=== PATIENT | male | born 1980 | race Caucasian/White ===

== ENCOUNTER 2022-10-23 08:41 | Outpatient (CLI) | payer MEDICARE, SELFPAY ==
--- NOTE | ~2022-10-23 | DEXA_ITS ---
Bone Density Report Name: AMINTA TITUS Age: 42 Sex: Male Ethnicity: White Date of : 1980 Indication: asthma or emphysema; Referring Provider: NIURKA RUIZ Study: Bone densitometry was performed. Exam Date: October 23, 2022 Accession number: [id number] Bone Density: Region BMD T-score Z-score Classification AP Spine(L1-L4) 0.774 -2.9 -2.7 Osteoporosis Femoral Neck (Left) 0.626 -2.2 -1.6 Osteopenia Total Hip (Left) 0.840 -1.3 -1.0 Osteopenia Femoral Neck (Right) 0.594 -2.5 -1.9 Osteoporosis Total Hip (Right) 0.749 -1.9 -1.6 Osteopenia Total Hip Mean 0.795 -1.6 -1.3 Osteopenia World Health Organization criteria for BMD impression classify patients as: Normal (T-score at or above -1.0), Osteopenia (T-score between -1.0 and -2.5), or Osteoporosis (T-score at or below -2.5). 10-year Fracture Risk: FRAX not reported because: Man under age 50 Some T-score for Spine Total or Hip Total or Femoral Neck at or below -2.5 Clinical Information Provided by Patient: Has used the following medications: Vitamin D, Calcium Has the following medical conditions: Asthma or Emphysema Patient maximum height was 64 No regular weight bearing exercise Drinks caffeinated beverages Impression: The patient's bone mass is below expected range for age, gender and ethnicity based on the Total Spine Z-score. Discussion: BONE DENSITY IS ABNORMALLY LOW FOR AGE, SEX, AND RACE. This patient's lowest Z-score is -2.0 or more below average for age, sex, and race at one or more sites. This may be due to low peak bone mass or to excessive bone loss. There may be some underlying disease or condition contributing to reduced bone mass. Further evaluation should be considered. There are no data relating bone density and fracture risk in younger men. The ISCD position is that the diagnosis of ?low bone mass? or ?osteoporosis? should not be made on densitometric criteria alone. WHO criteria only apply to men age > 50. The 10-year fracture risk calculated by FRAX is less than the threshold recommended by the National Osteoporosis Foundation (NOF) for treatment for men age > 50, and no threshold has been established for younger men. All treatment decisions require clinical judgment and consideration of individual patient factors, including patient preferences, comorbidities, previous drug use, risk factors not captured in the FRAX model (e.g., frailty, falls, vitamin D deficiency, increased bone turnover, interval significant decline in bone density) and possible under or overestimation of fracture risk by FRAX. Although pharmacologic therapy is sometimes indicated for patients with Z-scores in this range, there is little information available. A decision to treat should be based on a thorough consideration of benefits and risks. The p
== END 2022-10-23 08:42 | disposition home or self-care (01) ==
LOC: ANHIMG 08:44
PROVIDERS: PCP Internal Medicine; Visit Provider Orthopaedic Surgery
DX: M81.0 Age-related osteoporosis without current pathological fracture (principal); M85.852 Other specified disorders of bone density and structure, left thigh; M85.851 Other specified disorders of bone density and structure, right thigh
CPT/HCPCS: 77080

== ENCOUNTER 2025-02-15 10:40 | Outpatient (CLI) | payer MEDICARE, SELFPAY ==
--- NOTE | ~2025-02-15 | DEXA_ITS ---
Bone Density Report Name: AMINTA TITUS Age: 44 Sex: Male Ethnicity: White Date of : 1980 Indication: T-score -2.5 or less; monitoring treatment; asthma or emphysema; Referring Provider: KEVON, CHEL Study: Bone densitometry was performed. Exam Date: February 15, 2025 Accession number: [id number] Bone Density: Region BMD T-score Z-score Classification AP Spine(L1-L4) 0.697 -3.6 -3.3 Osteoporosis Femoral Neck (Left) 0.681 -1.8 -1.2 Osteopenia Total Hip (Left) 0.745 -1.9 -1.6 Osteopenia Femoral Neck (Right) 0.663 -2.0 -1.3 Osteopenia Total Hip (Right) 0.745 -1.9 -1.6 Osteopenia Total Hip Mean 0.745 -1.9 -1.6 Osteopenia World Health Organization criteria for BMD impression classify patients as: Normal (T-score at or above -1.0), Osteopenia (T-score between -1.0 and -2.5), or Osteoporosis (T-score at or below -2.5). 10-year Fracture Risk: FRAX not reported because: Man under age 50 Some T-score for Spine Total or Hip Total or Femoral Neck at or below -2.5 Treated for osteoporosis Previous Exams: Region Exam Age BMD T-score BMD Change BMD Change Date g/cm2 vs Baseline vs Previous AP Spine (L1-L4) 02/15/2025 44 0.697 -3.6 -0.076 (-9.9%) -0.076 (-9.9%) 10/23/2022 42 0.774 -2.9 Total Hip(Left) 02/15/2025 44 0.745 -1.9 -0.095 (-11.3% -0.095 (-11.3% 10/23/2022 42 0.840 -1.3 Total Hip(Right) 02/15/2025 44 0.745 -1.9 -0.004 (-0.6%) -0.004 (-0.6%) 10/23/2022 42 0.749 -1.9 *Denotes significance at 95% confidence level, LSC for AP Spine = 0.022 g/cm2, LSC for Total Hip = 0.027 g/cm2 Clinical Information Provided by Patient: Is being treated for osteoporosis Has used the following medications: Fosamax (i.e. alendronate), Vitamin D, Calcium Has the following medical conditions: Asthma or Emphysema Patient maximum height was 65 No regular weight bearing exercise Drinks caffeinated beverages Impression: The patient's bone mass is below expected range for age, gender and ethnicity based on the Total Spine Z-score. The BMD for the AP Spine (L1-L4) decreased, changing by -9.9% since the last DXA exam. The BMD for the Total Hip(Left) decreased, changing by -11.3% since the last DXA exam. Discussion: SIGNIFICANT BONE LOSS OBSERVED. Adherence to therapy (including calcium and vitamin D intake) should be assessed. If compliance is not a factor, review management and exclusion of secondary causes of bone loss. It is important to ask patients whether they are taking their medications and to encourage continued and appropriate compliance with their osteoporosis therapies to reduce fracture risk. It is also important to review their risk factors and encourage appropriate calcium and vitamin D intakes, exercise, fall prevention and other lifestyle measures. Follow-Up: Consider repeating this study in 2 years to reassess this patient's status, or sooner if there is some new clinical indication. Reported by: ALVIN on 02/15/2025 11:24:00 AM. Reviewed, dictated and finalized at location ATracy DALEY
--- OUTSIDE RECORDS SUMMARY | 2025-02-15 12:04 | XMS_ITS | Data Portability ---
Author Organization [place] [facility] [employer], Main Office Address [address] [place] [address] Care Team Providers Care Contact Manager Name Role Phone DYLON LORA Primary Care Provider DYLNO LORA Referring Provider Assessment Encounter Date Assessment Date Assessment LastModified by Organization Details LastModified Time 04/20/2023 04/20/2023 04/08/2021: TSH/Ft4: WNL Vit D <12.8L Chol 123, TG 49, HDL 48, LDL 65 CMP: Glob 2.5L<- can do more protein CBC: WN 04/10/2022: Vit D 34.3 TSH/LIPIDS/CBC/C MP: WNL tee Not available 04/20/2023 10:06:46 04/25/2024 04/25/2024 04/08/2021: TSH/Ft4: WNL Vit D <12.8L Chol 123, TG 49, HDL 48, LDL 65 CMP: Glob 2.5L<- can do more protein CBC: WNL 04/10/2022: Vit D 34.3 TSH/LIPIDS/CBC/C MP: WNL 04/14/2024: TSH 0.435L, FT4 1.29 Glob 2.4L [email or web address] Not available 04/25/2024 10:48:04 12/26/2024 12/26/2024 Time spent with patient included: preparing to see patient by reviewing tests, obtaining and reviewing history, medical examination and evaluation, counseling and educating the patient, ordering medications and tests, documenting clinical information in EHR, independently interpreting results and communicating results to the patient for a total of 35 minutes. [email or web address] Not available 12/26/2024 11:54:28 Plan of Treatment Reminders Order Date Submit Date Provider Last Modified By Organization Details Last Modified Time Details Appointments Physical/ Annual Wellness 15 2024 09:15A M Dylon smith MD Not available Not available Not available Any 30 2025 10:00A M Gail Woodward NP Not available Not available Not available Lab vitamin D, 25-hydrox y, total, serum [address] ([facility]), [address] [place], [address], 10/26/2024 09:07:58 noninvasi ve colorecta l cancer DNA + occult blood screening , QL, stool 2023 024 [facility] Only), [address], [address], [place], [address], 05/25/2024 11:08:03 CBC w/ auto diff [address] ([facility]), [address] [place], [address], 10/26/2024 09:07:58 CMP, serum or plasma [address] ([facility]), [address] [place], [address], 10/26/2024 09:07:58 lipid panel, serum [address] ([facility]), [address] [place], [address], 10/26/2024 09:07:58 TSH + free T4, serum [address] ([facility]), [address] [place], [address], 10/26/2024 09:07:59 vitamin D, 25-hydrox y, total, serum [address] ([facility]), [address] [place], [address], 11/22/2023 12:45:26 CBC w/ auto diff [address] ([facility]), [address] [place], [address], 11/03/2023 14:18:57 CMP, serum or plasma 2022 023 [facility] ([facility]), [address] [place], [address], 07/22/2023 18:21:08 lipid panel, serum [address] ([facility]), [address] [place], [address], 11/03/2023 14:19:14 TSH + free T4, serum [address] ([facility]), [address] [place], [address], 11/22/2023 12:45:37 PTH (parathyr oid hormone), intact + calcium, serum or plasma 2022 023 [facility] ([facility]), [address] [place], [address], 08/03/2023 18:08:07 vitamin D, 25-hydrox y, total, serum [address] ([facility]), [address] [place], [address], 02/23/2023 11:28:18 CMP, serum or plasma 2022 023 [email or web address] [facility] ([facility]), [address] [place], [address], 02/23/2023 11:28:18 TSH + free T4, serum 2022 023 [facility] ([facility]), [address] [place], [address], 02/23/2023 11:28:18 Referral endocrino logy referral 2023 024 [email or web address] [place], [address], [place], [address], 11/20/2024 10:01:24 endocrino logy referral 2022 023 Lalitha Vuong MD, [address],, [facility], [place], [address], 07/27/2023 11:27:21 Procedures None recorded. Surgeries None recorded. Imaging DEXA, axial skeleton 2023 024 [email or web address] 2 [facility] ([facility]), [address] [place], [address], 11/03/2024 11:40:51 Medication Orders Wixela Inhub 500 mcg-50 mcg/dose powder for inhalatio n 2024 025 [facility] [id number], [address], 12/26/2024 11:43:42 albuterol sulfate HFA 90 mcg/actua tion aerosol inhaler 2024 025 [facility] [address], [address], 12/26/2024 11:43:42 albuterol sulfate 2.5 mg/3 mL (0.083 %) solution for nebulizat ion 2024 025 [facility] [address], [address], 12/26/2024 11:47:38 alendrona te 70 mg tablet 2022 023 [facility] [address], [address], 07/27/2023 10:56:02 Tymlos 80 mcg/dose (3,120 mcg/1.56 mL) subcutane ous pen injector 2022 023 [email or web address] [address], [address], 04/20/2023 10:01:52 Patient TargetsNo targets recorded. Patient Instructions Encounter Date Encounter Id Patient Instructions Last Modified By Organization Details Last Modified Time 04/25/2024 [id number] Personalized [facility] Plan and Screening Recommendations Advance Directives - Do you have one? Advance Directives - Do we have your advance directive on file in your health record? Primary Prevention/Interven tion (prevents or decreases the chance of common diseases from occurring) Smoking Risk: Alcohol Misuse Screening: Weight: Physical activity: Nutrition: Fall Risk (screened today): Vaccines Pneumococcal: Influenza: Chronic Disease Risks Stroke: I have no recommendations Active diagnosis, Continue current treatment plan Heart Attack: I have no recommendations Act jean diagnosis, Continue current treatment plan Clogging of the Arteries: I have no recommendations Act jean diagnosis, Continue current treatment plan Diabetes: Active diagnosis, Continue current treatment plan Secondary Prevention/Interven tion (detects treatable diseases before they may cause symptoms, disability, or ) Prostate Cancer Screening: Colon Cancer Screening: Date Screening Last Performed: Eye Disease Screening: Dementia Risk: Depression Screening: Active diagnosis, Continue current treatment plan [email or web address] Not available 04/24/2024 08:46:19 Reason for Referral Endocrinology Referral for S econdary osteoporosis Referring Physician: Sushma Rodas, Endocrinology, Encounter Date: 07/27/2023 Endocrinology Referral for O steoporosis Referring Physician: Dylon Lora, Internal Medicine, Encounter Date: 04/25/2024 Results Created Date Observation Date Name Description Value Unit Range Abnormal Flag Note LastModifiedBy Organization Detail LastModifiedTime 04/01/20 23 04/01/2023 CBC/C OMPLE TE BLD COUNT W/DIF F white blood cells 4.7 x10'3 /uL 4.2-[address] [facility] (Lab) [address] [place], [address], 04/01/2023 14:44:58 04/01/20 23 04/01/2023 CBC/C OMPLE TE BLD COUNT W/DIF F red blood cells 4.95 x10'6 /uL 4.10-[address] [facility] (Lab) [address] [place], [address], 04/01/2023 14:44:58 04/01/20 23 04/01/2023 CBC/C OMPLE TE BLD COUNT W/DIF F hemoglobin 15.5 g/dL 13.2-[address] [facility] (Lab) [address] [place], [address], 04/01/2023 14:44:58 04/01/20 23 04/01/2023 CBC/C OMPLE TE BLD COUNT W/DIF F hematocrit 46.2 % 39.3-[address] [facility] (Lab) [address] [place], [address], 04/01/2023 14:44:58 04/01/20 23 04/01/2023 CBC/C OMPLE TE BLD COUNT W/DIF F mean red cell volume 93.3 fL 80.0-[address] [facility] (Lab) [address] [place], [address], 04/01/2023 14:44:58 04/01/20 23 04/01/2023 CBC/C OMPLE TE BLD COUNT W/DIF F mean red cell hemoglobin 31.3 pg 27.0-3 3.0 Not Available [facility] (Lab) [address] [place], [address], 04/01/2023 14:44:58 04/01/20 23 04/01/2023 CBC/C OMPLE TE BLD COUNT W/DIF F mean RBC HGB concentratio n 33.5 g/dL 31.0-3 6.0 Not Available [facility] (Lab) [address] [place], [address], 04/01/2023 14:44:58 04/01/20 23 04/01/2023 CBC/C OMPLE TE BLD COUNT W/DIF F red cell distribution width 11.9 % 11.8-[address] [facility] (Lab) [address] [place], [address], 04/01/2023 14:44:58 04/01/20 23 04/01/2023 CBC/C OMPLE TE BLD COUNT W/DIF F platelets 246 x10'3 /uL 150-[address] [facility] (Lab) [address] [place], [address], 04/01/2023 14:44:58 04/01/20 23 04/01/2023 CBC/C OMPLE TE BLD COUNT W/DIF F mean platelet volume 8.6 fL 9.0-12 .[address] [facility] (Lab) [address] [place], [address], 04/01/2023 14:44:58 04/01/2004/01/2023 CBC/C OMPLE TE BLD COUNT W/DIF F neutrophils 59.6 % 39.0-[address] [facility] (Lab) [address] [place], [address], 04/01/2023 14:44:58 04/01/2004/01/2023 CBC/C OMPLE TE BLD COUNT W/DIF F lymphocytes 23.8 % 16.0-[address] [facility] (Lab) [address] [place], [address], 04/01/2023 14:44:58 04/01/20 23 04/01/2023 CBC/C OMPLE TE BLD COUNT W/DIF F monocytes 10.0 % 5.0-12 .0 Not Available [facility] (Lab) [address] [place], [address], 04/01/2023 14:44:58 04/01/2004/01/2023 CBC/C OMPLE TE BLD COUNT W/DIF F eosinophils 5.3 % 1.0-7. [address] [facility] (Lab) [address] [place], [address], 04/01/2023 14:44:58 04/01/2004/01/2023 CBC/C OMPLE TE BLD COUNT W/DIF F basophils 1.1 % 0.0-2. [address] [facility] (Lab) [address] [place], [address], 04/01/2023 14:44:58 04/01/2004/01/2023 CBC/C OMPLE TE BLD COUNT W/DIF F immature granulocytes 0.2 % 0.00-[address] [facility] (Lab) [address] [place], [address], 04/01/2023 14:44:58 04/01/2004/01/2023 CBC/C OMPLE TE BLD COUNT W/DIF F neutrophils, absolute count 2.81 x10'3 /uL 1.5-8. [address] [facility] (Lab) [address] [place], [address], 04/01/2023 14:44:58 04/01/20 23 04/01/2023 CBC/C OMPLE TE BLD COUNT W/DIF F lymphocytes, absolute count 1.12 x10'3 /uL 1.07-[address] [facility] (Lab) [address] [place], [address], 04/01/2023 14:44:58 04/01/20 23 04/01/2023 CBC/C OMPLE TE BLD COUNT W/DIF F monocytes, absolute count 0.47 x10'3 /uL 0.29-[address] [facility] (Lab) [address] [place], [address], 04/01/2023 14:44:58 04/01/20 23 04/01/2023 CBC/C OMPLE TE BLD COUNT W/DIF F eosinophils, absolute count 0.25 x10'3 /uL 0.02-[address] [facility] (Lab) [address] [place], [address], 04/01/2023 14:44:58 04/01/20 23 04/01/2023 CBC/C OMPLE TE BLD COUNT W/DIF F basophils, absolute count 0.05 x10'3 /uL 0.01-[address] [facility] (Lab) [address] [place], [address], 04/01/2023 14:44:58 04/01/20 23 04/01/2023 CBC/C OMPLE TE BLD COUNT W/DIF F immature granulocytes ,absolute 0.01 x10'3 /uL 0.00-[address] [facility] (Lab) [address] [place], [address], 04/01/2023 14:44:58 04/01/20 23 04/01/2023 CBC/C OMPLE TE BLD COUNT W/DIF F nucleated red blood cells 0.0 % -0 Not Available [facility] (Lab) [address] [place], [address], 04/01/2023 14:44:58 04/01/20 23 04/01/2023 CBC/C OMPLE TE BLD COUNT W/DIF F NRBC# 0.00 x10'3 /uL Not Available [facility] (Lab) [address] [place], [address], 04/01/2023 14:44:58 04/01/20 23 04/01/2023 LIPID PANEL cholesterol 135 mg/dL 140-19 9 low NIH YON NSUS RECOM MENDA TION FOR SAMSON STERO L: ADULT CHILD LOW RISK: <200 <170 BORDE RLINE : <200- 239 ----- HIGH RISK: >240 >[address] [facility] (Lab) [address] [place], [address], 04/01/2023 15:01:02 04/01/20 23 04/01/2023 LIPID PANEL triglyceride s 48 mg/dL 0-150 NIH YON NSUS REPOR T RECOM MENDA TION FOR TRIGL YCERI UMBERTO: ADULT CHILD LOW RISK: <150 ----- BODER LINE: 150-1 99 ----- HIGH RISK: >200 ----- Not Available [facility] (Lab) [address] [place], [address], 04/01/2023 15:01:02 04/01/2004/01/2023 LIPID PANEL HDL cholesterol 51 mg/dL 40- Not Available [facility] (Lab) [address] [place], [address], 04/01/2023 15:01:02 04/01/2004/01/2023 LIPID PANEL LDL cholesterol, calculated 74 mg/dL 0-130 NIH YON NSUS REPOR T RECOM MENDA TIONS FOR LDL: ADULT CHILD LOW RISK <130 <110 (OPTI MAL LDL) <100 ----- BORDE RLINE : 130-1 59 ----- HIGH RISK: >160 >130 A TRIGL YCERI DE RESUL T >400 INVAL IDATE S THE CALCU LATIO N FOR LDL FRACT IONAT ION - THE LDL RESUL T WILL NOT BE REPOR ALESSIA. Not Available [facility] (Lab) [address] [place], [address], 04/01/2023 15:01:02 04/01/20 23 04/01/2023 COMPR EHENS JEAN METAB OLIC PANEL sodium 139 mmol/ L 137-14 5 Not Available [facility] (Lab) [address] [place], [address], 04/01/2023 15:01:11 04/01/20 23 04/01/2023 COMPR EHENS JEAN METAB OLIC PANEL potassium 5.0 mmol/ L 3.5-5. [address] [facility] (Lab) [address] [place], [address], 04/01/2023 15:01:11 04/01/20 23 04/01/2023 COMPR EHENS JEAN METAB OLIC PANEL chloride 101 mmol/ L 98-[address] [facility] (Lab) [address] [place], [address], 04/01/2023 15:01:11 04/01/20 23 04/01/2023 COMPR EHENS JEAN METAB OLIC PANEL carbon dioxide 29 mmol/ L 22-30 Not Available [facility] (Lab) [address] [place], [address], 04/01/2023 15:01:11 04/01/20 23 04/01/2023 COMPR EHENS JEAN METAB OLIC PANEL anion gap 14.0 mmol/ L 14-[address] [facility] (Lab) [address] [place], [address], 04/01/2023 15:01:11 04/01/20 23 04/01/2023 COMPR EHENS JEAN METAB OLIC PANEL glucose 86 mg/dL 70-[address] [facility] (Lab) [address] [facility] [place], [address], 04/01/2023 15:01:11 04/01/20 23 04/01/2023 COMPR EHENS JEAN METAB OLIC PANEL BUN 16 mg/dL 8-[address] [facility] (Lab) [address] [facility] [place], [address], 04/01/2023 15:01:11 04/01/20 23 04/01/2023 COMPR EHENS JEAN METAB OLIC PANEL creatinine 0.76 mg/dL 0.66-[address] [facility] (Lab) [address] [facility] [place], [address], 04/01/2023 15:01:11 04/01/20 23 04/01/2023 COMPR EHENS JEAN METAB OLIC PANEL GFR >60 Refer ence Range : Bowie ge GFR Healt hy Adult : >60 mL/mi n/1.7 3 m2 Chron ic Kidne y Disea se: 15-60 mL/mi n/1.7 3 m2 Kidne y Failu re: <15/m L/min /1.73 m2 www.n iddk. nih.g ov The MDRD study equat ion has not been valid ated in child lauro <18 years of age; pregn ant women ; the elder ly >85 years of age; or in some racia l or ethni c subgr oups, such as Hisfl nics. Outsi de the valid ated tania eters , estim ated GFR is less accur ate, requi ring clini adela judgm ent on a case- by-ca se basis . Clini adela inter preta tion for other races and ages must be made by the clini mercy. The MDRD study equat ion has not been valid ated for the evalu ation of serum creat inine relat ed to nutri lacie l statu s or medic ation usage . For perso ns <18 years of age, a pedia tric GFR calcu lator is avail able on the [employer] websi te: https ://aileen w.arline petersen.o rg/pr ofess ional s/kdo qi/gf r_cal culat or Not Available [facility] (Lab) [address] [place], [address], 04/01/2023 15:01:11 04/01/20 23 04/01/2023 COMPR EHENS JEAN METAB OLIC PANEL alkaline phosphatase 78 U/L 38-126 Not Available [facility] (Lab) [address] [place], [address], 04/01/2023 15:01:11 04/01/20 23 04/01/2023 COMPR EHENS JEAN METAB OLIC PANEL alanine aminotransfe rase 17 U/L 0-50 Not Available [facility] (Lab) [address] [place], [address], 04/01/2023 15:01:11 04/01/20 23 04/01/2023 COMPR EHENS JEAN METAB OLIC PANEL aspartate aminotransfe rase 25 U/L 15-46 Not Available [facility] (Lab) [address] [place], [address], 04/01/2023 15:01:11 04/01/20 23 04/01/2023 COMPR EHENS JEAN METAB OLIC PANEL bilirubin, total 0.80 mg/dL 0.20-[address] [facility] (Lab) [address] [place], [address], 04/01/2023 15:01:11 04/01/20 23 04/01/2023 COMPR EHENS JEAN METAB OLIC PANEL calcium 9.3 mg/dL 8.4-[address] [facility] (Lab) [address] [place], [address], 04/01/2023 15:01:11 04/01/20 23 04/01/2023 COMPR EHENS JEAN METAB OLIC PANEL total protein 6.9 g/dL 6.3-8. [address] [facility] (Lab) [address] [place], [address], 04/01/2023 15:01:11 04/01/20 23 04/01/2023 COMPR EHENS JEAN METAB OLIC PANEL albumin 3.9 g/dL 3.4-5. [address] [facility] (Lab) [address] [place], [address], 04/01/2023 15:01:11 04/01/20 23 04/01/2023 COMPR EHENS JEAN METAB OLIC PANEL globulin 3.0 g/dL 2.6-4. [address] [facility] (Lab) [address] [place], [address], 04/01/2023 15:01:11 04/01/20 23 04/01/2023 COMPR EHENS JEAN METAB OLIC PANEL A/G ratio 1.3 ratio 1.0-2. [address] [facility] (Lab) [address] [place], [address], 04/01/2023 15:01:11 04/01/20 23 04/01/2023 VITAM IN D 25-HY DROXY [id number] 33.2 NG/mL 30-100 Vitam in D Statu s: Defic ient: <20 ng/mL Insuf ficie nt: 20-29 ng/mL Suffi cient : 30-10 0 ng/mL Not Available [facility] (Lab) [address] [place], [address], 04/01/2023 15:26:11 04/01/2004/01/2023 TSH W/REF ONIEL FT4 TSH with reflex free T4 0.720 uIU/m L 0.465- 4.[address] [facility] (Lab) [address] [place], [address], 04/01/2023 15:29:57 07/22/20 23 07/22/2023 COMPR EHENS JEAN METAB OLIC PANEL sodium 134 mmol/ L 137-14 5 low Not Available [facility] (Lab) [address] [place], [address], 07/22/2023 18:21:08 07/22/20 23 07/22/2023 COMPR EHENS JEAN METAB OLIC PANEL potassium 4.1 mmol/ L 3.5-5. 1 Not Available [facility] (Lab) [address] [place], [address], 07/22/2023 18:21:08 07/22/20 23 07/22/2023 COMPR EHENS JEAN METAB OLIC PANEL chloride 99 mmol/ L 98-107 Not Available [facility] (Lab) [address] [place], [address], 07/22/2023 18:21:08 07/22/20 23 07/22/2023 COMPR EHENS JEAN METAB OLIC PANEL carbon dioxide 27 mmol/ L 22-30 Not Available [facility] (Lab) [address] [place], [address], 07/22/2023 18:21:08 07/22/20 23 07/22/2023 COMPR EHENS JEAN METAB OLIC PANEL anion gap 12.1 mmol/ L 14-22 low Not Available [facility] (Lab) [address] [place], [address], 07/22/2023 18:21:08 07/22/20 23 07/22/2023 COMPR EHENS JEAN METAB OLIC PANEL glucose 67 mg/dL 70-99 low Not Available [facility] (Lab) [address] [place], [address], 07/22/2023 18:21:08 07/22/20 23 07/22/2023 COMPR EHENS JEAN METAB OLIC PANEL BUN 14 mg/dL 8-19 Not Available [facility] (Lab) [address] [place], [address], 07/22/2023 18:21:08 07/22/20 23 07/22/2023 COMPR EHENS JEAN METAB OLIC PANEL creatinine 0.79 mg/dL 0.66-[address] [facility] (Lab) [address] [place], [address], 07/22/2023 18:21:08 07/22/20 23 07/22/2023 COMPR EHENS JEAN METAB OLIC PANEL GFR >60 Refer ence Range : Bowie ge GFR Healt hy Adult : >60 mL/mi n/1.7 3 m2 Chron ic Kidne y Disea se: 15-60 mL/mi n/1.7 3 m2 Kidne y Failu re: <15/m L/min /1.73 m2 www.n iddk. nih.g ov The MDRD study equat ion has not been valid ated in child lauro <18 years of age; pregn ant women ; the elder ly >85 years of age; or in some racia l or ethni c subgr oups, such as Hisfl nics. Outsi de the valid ated tania eters , estim ated GFR is less accur ate, requi ring clini adela judgm ent on a case- by-ca se basis . Clini adela inter preta tion for other races and ages must be made by the clini mercy. The MDRD study equat ion has not been valid ated for the evalu ation of serum creat inine relat ed to nutri lacie l statu s or medic ation usage . For perso ns <18 years of age, a pedia tric GFR calcu lator is avail able on the [facility] websi te: https ://ww w.kid nicola.o rg/pr ofess ional s/kdo qi/gf r_cal culat or Not Available [facility] (Lab) [address] [place], [address], 07/22/2023 18:21:08 07/22/20 23 07/22/2023 COMPR EHENS JEAN METAB OLIC PANEL alkaline phosphatase 71 U/L 38-126 Not Available [facility] (Lab) [address] [place], [address], 07/22/2023 18:21:08 07/22/20 23 07/22/2023 COMPR EHENS JEAN METAB OLIC PANEL alanine aminotransfe rase 17 U/L 0-50 Not Available [facility] (Lab) [address] [place], [address], 07/22/2023 18:21:08 07/22/20 23 07/22/2023 COMPR EHENS JEAN METAB OLIC PANEL aspartate aminotransfe rase 21 U/L 15-46 Not Available [facility] (Lab) [address] [place], [address], 07/22/2023 18:21:08 07/22/20 23 07/22/2023 COMPR EHENS JEAN METAB OLIC PANEL bilirubin, total 0.50 mg/dL 0.20-[address] [facility] (Lab) [address] [place], [address], 07/22/2023 18:21:08 07/22/20 23 07/22/2023 COMPR EHENS JEAN METAB OLIC PANEL calcium 9.4 mg/dL 8.4-[address] [facility] (Lab) [address] [place], [address], 07/22/2023 18:21:08 07/22/20 23 07/22/2023 COMPR EHENS JEAN METAB OLIC PANEL total protein 6.8 g/dL 6.3-8. [address] [facility] (Lab) [address] [place], [address], 07/22/2023 18:21:08 07/22/20 23 07/22/2023 COMPR EHENS JEAN METAB OLIC PANEL albumin 4.2 g/dL 3.4-5. [address] [facility] (Lab) [address] [place], [address], 07/22/2023 18:21:08 07/22/20 23 07/22/2023 COMPR EHENS JEAN METAB OLIC PANEL globulin 2.6 g/dL 2.6-4. [address] [facility] (Lab) [address] [place], [address], 07/22/2023 18:21:08 07/22/20 23 07/22/2023 COMPR EHENS JEAN METAB OLIC PANEL A/G ratio 1.6 ratio 1.0-2. [address] [facility] (Lab) [address] [place], [address], 07/22/2023 18:21:08 07/22/2007/22/2023 PARAT HY.HO RM(PT H)INT ACT-W /O CA intact parathyroid hormone 32.2 pg/mL 24.0-7 8.0 Pleas e note new refer ence range effec tive 11/[address] [facility] (Lab) [address] [place], [address], 07/22/2023 18:42:03 07/22/2007/22/2023 VITAM IN D 25-HY DROXY vd25oh 41.1 NG/mL 30-100 Vitam in D Statu s: Defic ient: <20 ng/mL Insuf ficie nt: 20-29 ng/mL Suffi cient : 30-10 0 ng/mL Not Available [facility] (Lab) [address] [place], [address], 07/22/2023 18:42:59 04/14/2004/14/2024 LIPID PANEL cholesterol 126 mg/dL 140-19 9 low NIH YON NSUS RECOM MENDA TION FOR SAMSON STERO L: ADULT CHILD LOW RISK: <200 <170 BORDE RLINE : <200- 239 ----- HIGH RISK: >240 >[address] [facility] (Lab) [address] [place], [address], 04/14/2024 14:40:10 04/14/20 24 04/14/2024 LIPID PANEL triglyceride s 41 mg/dL 0-150 NIH YON NSUS REPOR T RECOM MENDA TION FOR TRIGL YCERI UMBERTO: ADULT CHILD LOW RISK: <150 ----- BODER LINE: 150-1 99 ----- HIGH RISK: >200 ----- Not Available [facility] (Lab) [address] [place], [address], 04/14/2024 14:40:10 04/14/20 24 04/14/2024 LIPID PANEL HDL cholesterol 55 mg/dL 40- Not Available [facility] (Lab) [address] [place], [address], 04/14/2024 14:40:10 04/14/20 24 04/14/2024 LIPID PANEL LDL cholesterol, calculated 63 mg/dL 0-130 NIH YON NSUS REPOR T RECOM MENDA TIONS FOR LDL: ADULT CHILD LOW RISK <130 <110 (OPTI MAL LDL) <100 ----- REHANADE RLINE : 130-1 59 ----- HIGH RISK: >160 >130 A TRIGL YCERI DE RESUL T >400 INVAL IDATE S THE CALCU LATIO N FOR LDL FRACT IONAT ION - THE LDL RESUL T WILL NOT BE REPOR ALESSIA. Not Available [facility] (Lab) [address] [place], [address], 04/14/2024 14:40:10 04/14/20 24 04/14/2024 COMPR EHENS JEAN METAB OLIC PANEL sodium 135 mmol/ L 137-[address] [facility] (Lab) [address] [place], [address], 04/14/2024 14:40:16 04/14/20 24 04/14/2024 COMPR EHENS JEAN METAB OLIC PANEL potassium 4.2 mmol/ L 3.5-5. [address] [facility] [facility] (Lab) [address] [place], [address], 04/14/2024 14:40:16 04/14/20 24 04/14/2024 COMPR EHENS JEAN METAB OLIC PANEL chloride 105 mmol/ L 98-107 Not Available [facility] (Lab) [address] [place], [address], 04/14/2024 14:40:16 04/14/20 24 04/14/2024 COMPR EHENS JEAN METAB OLIC PANEL carbon dioxide 27 mmol/ L 22-[address] [facility] (Lab) [address] [place], [address], 04/14/2024 14:40:16 04/14/20 24 04/14/2024 COMPR EHENS JEAN METAB OLIC PANEL anion gap 7.2 mmol/ L 14-22 low Not Available [facility] (Lab) [address] [place], [address], 04/14/2024 14:40:16 04/14/20 24 04/14/2024 COMPR EHENS JEAN METAB OLIC PANEL glucose 95 mg/dL 70-[address] [facility] (Lab) [address] [place], [address], 04/14/2024 14:40:16 04/14/20 24 04/14/2024 COMPR EHENS JEAN METAB OLIC PANEL BUN 12 mg/dL 8-19 Not Available [facility] (Lab) [address] [place], [address], 04/14/2024 14:40:16 04/14/20 24 04/14/2024 COMPR EHENS JEAN METAB OLIC PANEL creatinine 0.73 mg/dL 0.66-[address] [facility] (Lab) [address] [place], [address], 04/14/2024 14:40:16 04/14/20 24 04/14/2024 COMPR EHENS JEAN METAB OLIC PANEL GFR >60 Refer ence Range : [place] GFR Healt hy Adult : >60 mL/mi n/1.7 3 m2 Chron ic Kidne y Disea se: 15-60 mL/mi n/1.7 3 m2 Kidne y Failu re: <15/m L/min /1.73 m2 www.n iddk. nih.g ov The MDRD study equat ion has not been valid ated in child lauro <18 years of age; pregn ant women ; the elder ly >85 years of age; or in some racia l or ethni c subgr oups, such as Hispa nics. Outsi de the valid ated tania eters , estim ated GFR is less accur ate, requi ring clini adela judgm ent on a case- by-ca se basis . Clini adela inter preta tion for other races and ages must be made by the clini mercy. The MDRD study equat ion has not been valid ated for the evalu ation of serum creat inine relat ed to nutri lacie l statu s or medic ation usage . For perso ns <18 years of age, a pedia tric GFR calcu lator is avail able on the [facility] websi te: https ://aileen petersen.edilberto connolly/rhys olguin s/kdo qi/gf r_cal culat or Not Available [facility] (Lab) [address] [place], [address], 04/14/2024 14:40:16 04/14/20 24 04/14/2024 COMPR EHENS JEAN METAB OLIC PANEL alkaline phosphatase 64 U/L 38-126 Not Available [facility] (Lab) [address] [place], [address], 04/14/2024 14:40:16 04/14/20 24 04/14/2024 COMPR EHENS JEAN METAB OLIC PANEL alanine aminotransfe rase 18 U/L 0-50 Not Available [facility] (Lab) [address] [place], [address], 04/14/2024 14:40:16 04/14/20 24 04/14/2024 COMPR EHENS JEAN METAB OLIC PANEL aspartate aminotransfe rase 23 U/L 15-46 Not Available [facility] (Lab) [address] [place], [address], 04/14/2024 14:40:16 04/14/20 24 04/14/2024 COMPR EHENS JEAN METAB OLIC PANEL bilirubin, total 0.90 mg/dL 0.20-[address] [facility] (Lab) [address] [place], [address], 04/14/2024 14:40:16 04/14/20 24 04/14/2024 COMPR EHENS JEAN METAB OLIC PANEL calcium 9.1 mg/dL 8.4-[address] [facility] (Lab) [address] [place], [address], 04/14/2024 14:40:16 04/14/20 24 04/14/2024 COMPR EHENS JEAN METAB OLIC PANEL total protein 6.6 g/dL 6.3-8. [address] [facility] (Lab) [address] [place], [address], 04/14/2024 14:40:16 04/14/20 24 04/14/2024 COMPR EHENS JEAN METAB OLIC PANEL albumin 4.2 g/dL 3.4-5. [address] [facility] (Lab) [address] [place], [address], 04/14/2024 14:40:16 04/14/20 24 04/14/2024 COMPR EHENS JEAN METAB OLIC PANEL globulin 2.4 g/dL 2.6-4. [address] [facility] (Lab) [address] [place], [address], 04/14/2024 14:40:16 04/14/20 24 04/14/2024 COMPR EHENS JEAN METAB OLIC PANEL A/G ratio 1.8 ratio 1.0-2. 0 Not Available [facility] (Lab) [address] [place], [address], 04/14/2024 14:40:16 04/14/20 24 04/14/2024 CBC/C OMPLE TE BLD COUNT W/DIF F white blood cells 4.7 x10'3 /uL 4.2-10 .8 Not Available [facility] (Lab) [address] [place], [address], 04/14/2024 14:45:31 04/14/20 24 04/14/2024 CBC/C OMPLE TE BLD COUNT W/DIF F red blood cells 4.83 x10'6 /uL 4.10-[address] [facility] (Lab) [address] [place], [address], 04/14/2024 14:45:31 04/14/20 24 04/14/2024 CBC/C OMPLE TE BLD COUNT W/DIF F hemoglobin 15.2 g/dL 13.2-[address] [facility] (Lab) [address] [place], [address], 04/14/2024 14:45:31 04/14/20 24 04/14/2024 CBC/C OMPLE TE BLD COUNT W/DIF F hematocrit 44.8 % 39.3-[address] [facility] (Lab) [address] [place], [address], 04/14/2024 14:45:31 04/14/20 24 04/14/2024 CBC/C OMPLE TE BLD COUNT W/DIF F mean red cell volume 92.8 fL 80.0-[address] [facility] (Lab) [address] [place], [address], 04/14/2024 14:45:31 04/14/20 24 04/14/2024 CBC/C OMPLE TE BLD COUNT W/DIF F mean red cell hemoglobin 31.5 pg 27.0-[address] [facility] (Lab) [address] [place], [address], 04/14/2024 14:45:31 04/14/20 24 04/14/2024 CBC/C OMPLE TE BLD COUNT W/DIF F mean RBC HGB concentratio n 33.9 g/dL 31.0-[address] [facility] (Lab) [address] [place], [address], 04/14/2024 14:45:31 04/14/20 24 04/14/2024 CBC/C OMPLE TE BLD COUNT W/DIF F red cell distribution width 11.9 % 11.8-[address] [facility] (Lab) [address] [place], [address], 04/14/2024 14:45:31 04/14/20 24 04/14/2024 CBC/C OMPLE TE BLD COUNT W/DIF F platelets 233 x10'3 /uL 150-[address] [facility] (Lab) [address] [place], [address], 04/14/2024 14:45:31 04/14/20 24 04/14/2024 CBC/C OMPLE TE BLD COUNT W/DIF F mean platelet volume 9.1 fL 9.0-[address] [facility] (Lab) [address] [place], [address], 04/14/2024 14:45:31 04/14/20 24 04/14/2024 CBC/C OMPLE TE BLD COUNT W/DIF F neutrophils 58.9 % 39.0-[address] [facility] (Lab) [address] [place], [address], 04/14/2024 14:45:31 04/14/20 24 04/14/2024 CBC/C OMPLE TE BLD COUNT W/DIF F lymphocytes 24.2 % 16.0-[address] [facility] (Lab) [address] [place], [address], 04/14/2024 14:45:31 04/14/20 24 04/14/2024 CBC/C OMPLE TE BLD COUNT W/DIF F monocytes 9.6 % 5.0-[address] [facility] (Lab) [address] [place], [address], 04/14/2024 14:45:31 04/14/20 24 04/14/2024 CBC/C OMPLE TE BLD COUNT W/DIF F eosinophils 6.0 % 1.0-7. 0 Not Available [facility] (Lab) [address] [place], [address], 04/14/2024 14:45:31 04/14/20 24 04/14/2024 CBC/C OMPLE TE BLD COUNT W/DIF F basophils 1.1 % 0.0-2. [address] [facility] (Lab) [address] [place], [address], 04/14/2024 14:45:31 04/14/20 24 04/14/2024 CBC/C OMPLE TE BLD COUNT W/DIF F immature granulocytes 0.2 % 0.00-[address] [facility] (Lab) [address] [place], [address], 04/14/2024 14:45:31 04/14/20 24 04/14/2024 CBC/C OMPLE TE BLD COUNT W/DIF F neutrophils, absolute count 2.75 x10'3 /uL 1.5-8. [address] [facility] (Lab) [address] [place], [address], 04/14/2024 14:45:31 04/14/20 24 04/14/2024 CBC/C OMPLE TE BLD COUNT W/DIF F lymphocytes, absolute count 1.13 x10'3 /uL 1.07-[address] [facility] (Lab) [address] [place], [address], 04/14/2024 14:45:31 04/14/20 24 04/14/2024 CBC/C OMPLE TE BLD COUNT W/DIF F monocytes, absolute count 0.45 x10'3 /uL 0.29-[address] [facility] (Lab) [address] [place], [address], 04/14/2024 14:45:31 04/14/20 24 04/14/2024 CBC/C OMPLE TE BLD COUNT W/DIF F eosinophils, absolute count 0.28 x10'3 /uL 0.02-[address] [facility] (Lab) [address] [place], [address], 04/14/2024 14:45:31 04/14/20 24 04/14/2024 CBC/C OMPLE TE BLD COUNT W/DIF F basophils, absolute count 0.05 x10'3 /uL 0.01-[address] [facility] (Lab) [address] [place], [address], 04/14/2024 14:45:31 04/14/20 24 04/14/2024 CBC/C OMPLE TE BLD COUNT W/DIF F immature granulocytes ,absolute 0.01 x10'3 /uL 0.00-[address] [facility] (Lab) [address] [place], [address], 04/14/2024 14:45:31 04/14/20 24 04/14/2024 CBC/C OMPLE TE BLD COUNT W/DIF F nucleated red blood cells 0.0 % -0 Not Available [facility] (Lab) [address] [place], [address], 04/14/2024 14:45:31 04/14/20 24 04/14/2024 CBC/C OMPLE TE BLD COUNT W/DIF F NRBC# 0.00 x10'3 /uL Not Available [facility] (Lab) [address] [place], [address], 04/14/2024 14:45:31 04/14/20 24 04/14/2024 T4 FREE free T4 1.29 NG/dL 0.78-[address] [facility] (Lab) [address] [place], [address], 04/14/2024 14:58:08 04/14/20 24 04/14/2024 TSH thyroid-stim ulating hormone 0.435 uIU/m L 0.465- 4.[address] [facility] (Lab) [address] [place], [address], 04/14/2024 15:25:07 04/14/20 24 04/14/2024 VITAM IN D 25-HY DROXY [id number] 46.4 NG/mL 30-100 Vitam in D Statu s: Defic ient: <20 ng/mL Insuf ficie nt: 20-29 ng/mL Suffi cient : 30-10 0 ng/mL Not Available [facility] (Lab) [address] [place], [address], 04/14/2024 15:29:04 05/08/20 24 05/08/2024 US, thyro id [facility] [address] [place] [address] [phone] Patien t Name: RAFIQ YA KRISTINA CASEY Access ion #: [id number] Sex: M : 1979 7 Dictat ed By: Mauri Freeman Attend ing Physic cassi: SABRINA CRUZ Ordercecy muñiz Physic cassi: TYREESABRINA SHAW Exam Date: 2023 12:04 PM Exam Name: US NECK HEAD SOFT TISSUE Admitt ing Diagno sis(es ): ULTRAS OUND SOFT TISSUE [facility] AL INDICA TION: abnorm al TSH TECHNI QUE: Multip le real time sonogr aphic images of the thyroi d were obtain ed. FINDIN GS: The right thyroi d gland measur es 5 cm. The left thyroi d gland measur es approx imatel y 5 cm. The isthmu s measur es 0.4 cm. IMPRES YULI: 1. Normal Thyroi d. [employer] TI-RAD S Catego alan and Recomm endati ons (2017) : TR1: 0 points , Benign , No FNA TR2: 2 points , Not suspic ious, No FNA TR3: 3 points , Mildly suspic ious, FNA if > or = 2.5 cm, Follow if > or = 1.5 cm TR4: 4-6 points , Modera tely Suspic ious, FNA if > or = 1.5 cm, Follow if > or = 1.0 cm TR5: 7+ points , Highly Suspic ious, FNA if > or = 1.0 cm, Follow if > or = 0.[address] [facility] [address] [id number] Patien t Name: KRISTINA SANCHES Access ion #: [id number] Sex: M : 1979 7 Dictat ed By: Mauri Freeman Attend ing Physic cassi: NELY CHAN Physic cassi: TYREESABRINA SHAW Exam Date: 2023 12:04 PM Exam Name: US NECK HEAD SOFT TISSUE Admitt ing Diagno sis(es ): cm Follow -up ultras ound guidel vikram: TR5: yearly for 5 years, if no growth or change in TI-RAD S level TR4: at 1, 2, 3 and 5 years, if no growth or change in TI-RAD S level TR3: at 1, 3 and 5 years, if no growth or change in TI-RAD S level If increa sed but below thresh old for FNA, repeat in one year. Source : ACR Thyroi d Radha g, Report ing and Data System (TI-RA DS): White Paper of the ACR TI-RAD S Commit fortino. Aravind et al., J Am [place] Radiol 2017;1 4:587- 595. Electr onical ly Signed by: Mauri Freeman at 2023 13:21: 05 PM Page 2 [email or web address] [facility] ([facility] Sched[facility]) [address] [place], [address], 11/13/2024 18:38:57 Result Notes None recorded. 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 2022 Not Available [facility] 3 14:09:18 Thyroid stimulati ng hormone level below reference range 295135820 Active 2023 Shanika Hernández MA [facility], [employer] 4 15:23:13 Serum thyroid stimulati ng hormone level outside reference range 491987117 Active 2023 Dylon george MD [address] [facility], [facility] [address], [place], [address] , [employer] 4 10:51:41 Asthma without status asthmatic 20960488 Active 2024 Shea Gilmore MA null, [facility] [employer] [facility] 5 11:03:46 Dyspnea on exertion 10325523 Active 2024 Gail Woodward NP [address] [facility], [address] [address], [place], [address] , [place] [facility] [employer] [facility] 5 11:15:39 Cerebral palsy 718683247 Active Not Available [facility] 3 14:09:18 Asthma 683365687 Active Not Available [facility] 3 14:09:18 Vitamin D deficienc y 95286979 Active 2021 Not Available [facility] 3 14:09:18 IgE-media alessia allergic asthma 688920366 Completed Not Available [facility] 3 04:53:19 Pain of left knee joint 22764130253 4107 Active 2021 Not Available [facility] 3 14:09:18 Hyperlipi demia 76941866 Active 2021 Not Available [facility] 3 14:09:18 Problem Notes None recorded. Procedures Surgical History Date Name Laterality Status Provider Name and Address Organization Details Recorded Time 4 Medicare Wellness CPT Code, subsequent completed Bassam Hardwick LPN [facility] [employer] [facility] 04/24/2024 08:46:19 Brain Surgery completed Not Available [facility] 12/23/2022 04:42:48 Imaging Results Imaging Date Name Status LastModified by Organiz ation Details LastModified Time 05/08/2024 US, thyroid active [id number] [facility] ([facility] Sched[facility]) [address] [place], [address], 11/13/2024 18:38:57 Procedure Notes None recorded. Medical Equipment None Reported. Allergies Allergen ID Allergen Name Allergen Category Reaction Reaction Severity Criticality Documentation Date Start Date Code Code System Note Provider Name and Address Organization Details Recorded Time 8757 weed pollen environme nt,medica tion Not available Not available Not available 12/23/2022 84084 UNK seaso nal aller gies Not Available [facility] 3 05:06:33 8758 mold extract environme nt Not available Not available Not available 12/23/2022 59555 8 RxNorm seaso nal aller gies Not Available [facility] 3 05:06:33 8759 grass pollen environme nt,medica tion Not available Not available Not available 12/23/2022 03814 UNK seaso nal aller gy sympt oms Not Available [facility] 3 05:06:33 Medications Name Sig Start Date Stop Date Status Note LastModified by Organization Details LastModified Time fluconazole 100 mg tablet TAKE 1 TABLET BY MOUTH EVERY DAY FOR 14 DAYS 12/26 completed Not Available Not Available Not Available prednisone 10 mg tablet Take 4 tablets every day by oral route. active Not Available Not Available No t Available cefuroxime axetil 250 mg tablet 11/02 completed Not Available Not Available Not Available ipratropium 0.5 mg-albutero l 3 mg (2.5 mg base)/3 mL nebulizatio n soln Inhale 3 mL every 4 hours by nebulizat ion route. 03/16 completed Not Available Not Available Not Available albuterol sulfate 2.5 mg/3 mL (0.083 %) solution for nebulizatio n Inhale 3 mL 3 times a day by nebulizat ion route PRN. 2024 active Not Available Not Available Not Avai lable prednisone 20 mg tablet 09/03 completed Not Available Not Available Not Available alendronate 70 mg tablet TAKE 1 TABLET BY MOUTH ONE TIME PER WEEK FOR 90 DAYS active Not Available Not Available No t Available Zithromax Z-Osvaldo 250 mg tablet TAKE 2 TABLETS (500 MG) BY ORAL ROUTE ONCE DAILY FOR 1 DAY THEN 1 TABLET (250 MG) BY ORAL ROUTE ONCE DAILY FOR 4 DAYS 09/22 completed Not Available Not Available Not Available sulfamethox azole 800 mg-trimetho prim 160 mg tablet 09/03 completed Not Available Not Available Not Available tamsulosin 0.4 mg capsule TAKE 1 CAPSULE BY MOUTH EVERY DAY 04/25 completed Not Available Not Available Not Available dexamethaso ne 1 mg tablet TAKE 1 TABLET BY MOUTH AT 10 PM NIGHT BEFORE 8 AM CORTISOL 04/20 completed Not Available Not Available Not Available benzonatate 100 mg capsule 09/03 completed Not Available Not Available Not Available cephalexin 500 mg capsule TAKE 1 CAPSULE BY MOUTH EVERY 12 HOURS FOR 14 DAYS 12/26 completed Not Available Not Available Not Available pantoprazol e 40 mg tablet,vasquez yed release TAKE 1 TABLET DAILY 09/22 completed Not Available Not Available Not Available budesonide 0.5 mg/2 mL suspension for nebulizatio n 09/03 completed Not Available Not Available Not Available montelukast 10 mg tablet TAKE 1 TABLET BY MOUTH DAILY 2024 active Not Available Not Available Not Avai lable levofloxaci n 500 mg tablet Take 1 tablet every 24 hours by oral route for 10 days. 04/21 completed Not Available Not Available Not Available levofloxaci n 750 mg tablet Take 1 tablet every day by oral route. 11/02 completed Not Available Not Available Not Available methylpredn isolone 4 mg tablets in a dose pack Take by oral route. UUD active Not Available Not Available No t Available albuterol sulfate HFA 90 mcg/actuati on aerosol inhaler Inhale 2 puffs every 4 hours by inhalatio n route as needed. 2024 active Not Available Not Available Not Avai lable Vitamin D2 1,250 mcg (50,000 unit) capsule Take 1 capsule every week by oral route for 60 days. 05/09 completed Not Available Not Available Not Available fluticasone propionate 50 mcg/actuati on nasal spray,suspe nsion 2 SPRAYS EACH NOSTRIL DAILY active Not Available Not Available No t Available amoxicillin 875 mg-potassiu m clavulanate 125 mg tablet 09/22 completed Not Available Not Available Not Available Mucinex DM 60 mg-1,200 mg tablet,exte nded release 12 hr Take 1 tablet twice a day by oral route. active Not Available Not Available No t Available Tymlos 80 mcg/dose (3,120 mcg/1.56 mL) subcutaneou s pen injector Inject 80 microgram s every day by subcutane ous route in the morning for 90 days. 04/20 completed Not Available Not Available Not Available Wixela Inhub 500 mcg-50 mcg/dose powder for inhalation USE 1 INHALATIO N BY MOUTH TWICE DAILY 2024 active Not Available Not Available Not Avai lable Vitals Date Recorded Body height Body mass index (BMI) Body weight Body temperature Heart rate Systolic blood pressure Diastolic blood pressure Provider Name and Address Organization Details Last Updated DateTime 3 165.1 cm 27.5 kg/m2 41429.7 4 g 97.7 [degF] 76 /min 103 mm[Hg] 71 mm[Hg] Samra Liu CMA [facility] 3 11:02:31 Date Recorded Body height Body mass index (BMI) Body weight Body temperature Heart rate Oxygen saturation Oxygen saturation in Arterial blood by Pulse oximetry Systolic blood pressure Diastolic blood pressure Provider Name and Address Organization Details Last Updated DateTime 3 165.1 cm 27.3 kg/m2 86492.1 5 g 99.3 [degF] 76 /min 94 % 94 % 126 mm[Hg] 60 mm[Hg] Merly Vazquez MA [facility] 3 10:03:53 Date Recorded Body height Body mass index (BMI) Body weight Body temperature Respiratory rate Heart rate Systolic blood pressure Diastolic blood pressure Provider Name and Address Organization Details Last Updated DateTime 3 165.1 cm 27.5 kg/m2 92524.7 4 g 98.2 [degF] 14 /min 79 /min 102 mm[Hg] 70 mm[Hg] Nhi Smith RN [facility] 3 10:43:29 Date Recorded Body height Body mass index (BMI) Body weight Body temperature Heart rate Systolic blood pressure Diastolic blood pressure Provider Name and Address Organization Details Last Updated DateTime 4 165.1 cm 27.5 kg/m2 07065.7 4 g 97.6 [degF] 78 /min 114 mm[Hg] 72 mm[Hg] SHERIE Bundy [facility] 4 10:14:20 Date Recorded Body height Body mass index (BMI) Body weight Body temperature Heart rate Oxygen saturation Oxygen saturation in Arterial blood by Pulse oximetry Systolic blood pressure Diastolic blood pressure Provider Name and Address Organization Details Last Updated DateTime 5 165.1 cm 27.5 kg/m2 23396.7 4 g 97.9 [degF] 92 /min 94 % 94 % 110 mm[Hg] 64 mm[Hg] Shea Gilmore MA [place] [facility] [employer] 11:12:41 Social History Question Answer Notes LastModified by Organization Details LastModified Time Tobacco Smoking Status Never Smoker Not Available [employer] 12/23/2022 04:30:02 Do You Have An Advance Directive? No Paperwork Provided [email or web address] [id number] Information not available 12/23/2022 What Is Your Level Of Alcohol Consumption? None [email or web address].030 [id number] Information not available 12/23/2022 Are You Blind Or Do You Have Difficulty Seeing? No [email or web address].030 [id number] Information not available 12/23/2022 What Is Your Level Of Caffeine Consumption? Occasional [email or web address].030 [id number] Information not available 12/23/2022 In The 14 Days Before Symptom Onset, Have You Had Close Contact With A Laboratory-conf irmed COVID-19 While That Case Was Ill? No [email or web address] [id number] Information not available 12/23/2022 In The 14 Days Before Symptom Onset, Have You Had Close Contact With A Person Who Is Under Investigation For COVID-19 While That Person Was Ill? No [email or web address] [id number] Information not available 12/23/2022 Are You Deaf Or Do You Have Serious Difficulty Hearing? No [email or web address].[id number] Information not available 12/23/2022 What Type Of Diet Are You Following? REGULAR [email or web address].030 [id number] Information not available 12/23/2022 Do You Or Have You Ever Used E-cigarettes Or Vape? Never Used Electronic Cigarettes [email or web address].030 [id number] Information not available 12/23/2022 What Is The Highest Grade Or Level Of School You Have Completed Or The Highest Degree You Have Received? [id number] MIGRATION.030 [id number] Information not available 12/23/2022 Do You Have An Electrostatic Air Filter? 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 No [email or web address].030 [id number] Information not available 12/23/2022 What Is The Fluoride Status Of Your Home? Unknown [email or web address].030 [id number] Information not available 12/23/2022 Are There Any Guns Present In Your Home? No MIGRATION.0301 [id number] Information not available 12/23/2022 Do You Have A Humidifier? No Information not available 12/26/2024 Do You Use Insect Repellent Routinely? Yes [id number].0301 [id number] Information not available 12/23/2022 Where Do You Live? [facility] MIGRATION.0301 [id number] Information not available 12/23/2022 Do You Have A Medical Power Of Airconditioning Drafting Officer? No [email or web address].0301 [id number] Information not available 12/23/2022 Do You Have Moisture Problems In Your Home? No Information not available 12/26/2024 What Was The Date Of Your Most Recent Tobacco Screening? 12/26/2024 Information not available 12/26/2024 Do You Have Any Pets? Yes [id number].[id number] [id number] Information not available 12/23/2022 What Is Your Relationship Status? Single MIGRATION.0301 [id number] Information not available 12/23/2022 Do You Use Your Seat Belt Or Car Seat Routinely? Yes [email or web address].0301 [id number] Information not available 12/23/2022 Do You Have Smoke And Carbon Monoxide Detectors In Your Home? Yes [email or web address].0301 [id number] Information not available 12/23/2022 Are You Passively Exposed To Smoke? Yes [email or web address].0301 [id number] Information not available 12/23/2022 Do You Or Have You Ever Used Smokeless Tobacco? Never Used Smokeless Tobacco [email or web address] [id number] Information not available 12/23/2022 Are There Any Smokers In Your House? Yes MIGRATION.[id number] [id number] Information not available 12/23/2022 What Types Of Sporting Activities Do You Participate In? None MIGRATION.0301 [id number] Information not available 12/23/2022 Do You Feel Stressed (tense, Restless, Nervous, Or Anxious, Or Unable To Sleep At Night)? [id number] MIGRATION.0301 [id number] Information not available 12/23/2022 Do You Use Any Illicit Or Recreational Drugs? No MIGRATION.0301 [id number] Information not available 12/23/2022 Do You Use Sunscreen Routinely? No MIGRATION.0301 [id number] Information not available 12/23/2022 Has Tobacco Cessation Counseling Been Provided? No N/a MIGRATION.0301 [id number] Information not available 12/23/2022 Have You Recently Traveled Abroad? No MIGRATION.030 [id number] Information not available 12/23/2022 Do You Have Any Dietary Restrictions? No MIGRATION.0301 [id number] Information not available 12/23/2022 Do You Or Have You Ever Used Any Other Forms Of Tobacco Or Nicotine? No MIGRATION.0301 [id number] Information not available 12/23/2022 Sex: Male Functional Status Question Answer Note LastModified by Organizat [facility] Details LastModified Time Do you have difficulty walking or climbing stairs? Yes [id number] Information not available 12/23/2022 Do you have difficulty doing errands alone? Yes MIGRATION.[id number] Information not available 12/23/2022 Do you have difficulty dressing or bathing? Yes MIGRATION.[id number] Information not available 12/23/2022 What is your exercise level? None MIGRATION.[id number] Information not available 12/23/2022 Mental Status Question Answer Note LastModified by Organizat ion Details LastModified Time Do you have difficulty concentrating, remembering or making decisions? No MIGRATION.[id number] Information not available 12/23/2022 Family History Nothing Reported. Medical History Condition Response LUNG DISEASE/DISORDER Y GERD/NAUSEA Y Immunizations Vaccine Type Date Status Note Provider Nam e and Address Organization Details Recorded Time COVID-19, mRNA, LNP-S, PF, 30 mcg/0.3 mL dose, aristides-sucrose 3 completed Анна Mckinney RMA yary, [facility] 04/25/2024 09:14:32 Influenza, split virus, quadrivalent, PF 3 completed Анна Mckinney RMA null, [facility] 11/02/2023 13:41:40 COVID-19, mRNA, LNP-S, PF, 30 mcg/0.3 mL dose 1 completed Анна Mckinney RMA yary, [facility] 04/25/2024 09:14:32 COVID-19, mRNA, LNP-S, bivalent, PF, 30 mcg/0.3 mL dose 3 completed Анна Mckinney RMA yary, [facility] 04/25/2024 09:14:32 Influenza, split virus, quadrivalent, PF 2 completed Анна Mckinney RMA null, [facility] 04/25/2024 09:14:32 Influenza, split virus, quadrivalent, PF 0 completed Анна Mckinney RMA null, [facility] 04/25/2024 09:14:32 Influenza, split virus, quadrivalent, PF 1 [facility] 09:14:32 COVID-19, mRNA, LNP-S, PF, aristides-sucrose, 30 mcg/0.3 mL 4 completed [facility] 08/21/2024 18:23:08 Influenza, recombinant, trivalent, PF 4 completed Анна Mckinney RMA null, [facility] 08/21/2024 18:26:38 COVID-19 vaccine, vector-nr, rS-Ad26, PF, 0.5 mL 1 completed [facility] 04/25/2024 09:14:32 Influenza, split virus, trivalent, preservative 1 completed Анна Mckinney RMA null, [facility] 04/25/2024 09:14:32 Tdap 8 completed Not Available [facility] 07/23/2023 06:40:58 pneumococcal polysaccharide PPV23 5 completed Not Available [facility] 07/23/2023 06:40:58 Influenza, split virus, quadrivalent, PF 8 completed Not Available [facility] 07/23/2023 06:40:58 Past Encounters Encounter ID Performer Location Encounter Start Date Encounter Closed Date Diagnosis/Indication Diagnosis SNOMED-CT Code Diagnosis ICD10 Code Diagnosis Note [id number] [facility] [address] [facility], [address] [place] [address] 04/17/2021 00:00:00 04/17/2021 10:54:53 [id number] [facility] [address] [place] [address] 04/21/2022 00:00:00 04/21/2022 14:02:13 [id number] [facility] [place] [address] [place] [address] 10/08/2022 00:00:00 10/08/2022 22:49:26 [id number] [facility] [place] [address] [place] [address] 12/10/2022 00:00:00 12/10/2022 12:15:36 [id number] Sushma Rodas MD [facility] [place] [address] [place] [address] 02/23/2023 10:49:00 02/23/2023 12:27:35 Postmenopausal osteoporosis 786826703 M81.0 Patient had no evidence of thyroid disease or hyperparat hyroidism on workup. His cortisol did suppress with DST testing so no evidence of hypercorti solism. Patient does have hx of heartburn and does struggle with large pills. Due to immobiliza tion and continued risk for bone loss recommend tymlos or forteo as optimal initial therapy. Will look into forteo or tymlos as initial therapy as these are known to increase levels of insulin-li ke growth factor 1, resulting in increase in the number of osteoblast precursors , and increase of osteoblast survival, in addition to activation of the calcium protein kinase C pathway that stimulates proliferat ion of cells in the osteoblast ic lineage along with multiple Wnt signaling upregulati on and most importantl y helps to increase trabecular bone volume. Will reach out to insurance to start on tymlos 80 mcg daily. Will reach out to nurse coordinato r to assist family with medication start to complete at home therapy. Spent up to 20 minutes preparing to see the patient (eg, review of tests), obtaining and/or reviewing separately obtained history, performing a medically appropriat e examinatio n and evaluation , counseling and educating the patient, ordering medication s, tests, along with documentin g clinical informatio n in the electronic health record, independen tly interpreti ng results and communicat ing results to the patient. RTC in 6 months. Patient was provided a handwritte n lab order which contains our fax number. If he chooses to go outside of the [facility] system to obtain labwork he was advised to provide our fax number and my informatio n to the lab he will be obtaining labwork from in order to have his labs properly forwarded over for me to review so there is no loss of follow up due to use of outside network. He was also advised to contact our clinic informing us that he has completed his labwork so we are aware we will need to reach out to the appropriat e laboratory to request his results be forwarded to us so I might have the ability to review and make further medical decision making in his case. He voiced understand ing. [id number] Dylon george MD [facility] [address] [facility], [facility] [address] [place] [address] 04/20/2023 09:55:24 04/20/2023 10:38:47 Screening - NAD 198450954 Z13.9 Get yearly flu shotUTD Tdap 09/22/18UT D on PPV #23 08/12/15UT D COVID 19 vaccine DEXA: 10/23/2022 : Should be on ca and vit RTC in 12 monthsLabs ER if worseTevin and Juan did verbalize their understand ing of the above Vitamin D deficiency 347 88774 E55.9 Asthma 462143885 J45.90 9 Not on advair 500-50On albuterol HHNOn singulairO n proairOn zyrtec PRNOn Wixella now Does well with above Gastroesop hageal reflux disease without esophagitis 775817186 K21.9 On a PPITakes it as needed Long-term drug therapy 772807332 Z79.525 [id number] Sushma Rodas MD [facility] [place] [address] [place] [address] 07/27/2023 10:35:00 07/27/2023 11:27:21 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 Patient could not go on tymlos due to cost-finis hed three months of alendronat e and tolerating therapy well. Continue current regimen and due for repeat bone density in 09/2024. Refer to endocrinol ogy per patient request. Osteoporosis 97865237 M8 1.0 Refill alendronat e as patient tolerating well. Continue vitamin D 3 800 IU daily along with calcium 1200 mg daily for bone health. Spent up to 15 minutes preparing to see the patient (eg, review of tests), obtaining and/or reviewing separately obtained history, performing a medically appropriat e examinatio n and evaluation , counseling and educating the patient, ordering medication s, tests, along with documentin g clinical informatio n in the electronic health record, independen tly interpreti ng results and communicat ing results to the patient. Patient can be followed by PCP - she/he is aware of my resignatio n and last day of August 06. If needed his/her PCP can refer patient to another endocrinol ogist in the area. All questions /concerns answered and refills necessary at visit today. [id number] Dylon george MD [facility] [address] [facility], [address] [place] [address] 04/25/2024 09:56:23 04/25/2024 10:56:49 Screening - NAD 197743145 Z13.9 C-scope: Can do this, wants cologuard Get yearly flu shotUTD Tdap 09/22/18UT D on PPV #23 08/12/15UT D COVID 19 vaccine DEXA: 10/23/2022 : Should be on ca and vit, on fosamax RTC in 12 months as per his wishesLabs ER if worseHe and Juan did verbalize their understand ing of the above Vitamin D deficiency 347 43047 E55.9 Asthma 606070491 J45.90 9 Not on advair 500-50On albuterol HHNOn singulairO n proairOn zyrtec PRNNot on Wixella now Does well with above Gastroesop hageal reflux disease without esophagitis 810605553 K21.9 On a PPITakes it as needed Long-term drug therapy 151822896 Z79.[address] Rodas 07/27/2023 : D/t immobiliza tion, take fosamaxRef erred to Dr Rodas 04/25/2024 Screening for osteoporosis 871089742 Z13.820 Adult heal th examination 453371174 Z00.00 Screening for malignant neoplasm of colon 328391515 Z12.11 Serum thyr oid stimulating hormone level outside reference range 163304342 R89.1 Repeat the TSH/FT4 [id number] Gail Woodward NP [facility] [address] [place] [address] 12/26/2024 10:51:17 12/26/2024 11:30:18 Asthma without status asthmaticus 46473266 J45.909 ACT on no maintenanc e inhaler: 15Mom and patient do not want to do lab work or PFT at this time-they are aware to call if any changes and can consider at that time.Patie nt will remain on current medication s-no changes today-both patient and Mom agree with current planAsthma Action plan discussedU se Albuterol only PRN-if using more discussed need for re-evaluat ionIn depth discussion about s/s that require evaluation Return in 1 year-soone r if new or worsening of s/s Health Concerns Section Related Observation LastModified by Organization Detai ls LastModified Time None Recorded Concern Status LastModified by Organization Details LastModified Time None Recorded Advance Directives Directive N: paperwork provided Payers Encounter Date Sequence Insurance Name Policy Number Policy Rivera Covered Member ID Rivera Member ID Guarantor Name 02/23/2023 1 [facility] (MEDICARE REPLACEMENT/ ADVANTAGE - HMO) [id number] Chris Dan [id number] Chris Dan 04/20/2023 1 [facility] (MEDICARE REPLACEMENT/ ADVANTAGE - HMO) [id number] Chris Dan [id number] Chris Dan 07/27/2023 1 [facility] (MEDICARE REPLACEMENT/ ADVANTAGE - HMO) [id number] Chris Dan [id number] Chris Dan 04/25/2024 1 [facility] (MEDICARE REPLACEMENT/ ADVANTAGE - HMO) [id number] Chris Mejia Ni [id number] Chris Ni 12/26/2024 1 [facility] (MEDICARE REPLACEMENT/ ADVANTAGE - HMO) [id number] Chris Mejia Ni [id number] Chris Dan Notes Date Note Type Note Provider Name and Address Organization Details Recorded Time 02/23/2023 text/html 42 yo male comes in for follow up in 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 He is having more constipation and now taking miralax since doubling his calcium. He does walk around at home, he ambulates probably 50% of time with assistance devices. No recent falls or fractures. No hx of radiation treatment or cancer. labs from 01/14:cortisol 1.1 ug/dLTSH of 0.493 uIU/mlFT4 1.38 ng/dLvit D 37.6 ng/mLPTH 27.7 pg/mLcalcium 9.8 mg/dLCr normalLFT normalPO4 3.3 ng/mL Sushma Rodas MD [address] [facility], [facility] [address], [place], [address], [place] [facility] 03/29/2023 17:08:57 04/20/2023 text/html Here to julia mishra care:Past PMD: Dr De La Rosa Hx:AsthmaCerebral PalsyGERDReviewed social family and surgical historyHere with his motherHe and his mother feels that he is doing well at this timeOV 09/22/18:Here for his routine aptHe is here with his mother and states that he is doing well at this timeNo recent labs were done since 03/24/18He would like to get the lipoma removed from the scalp a sit does hurt him OV 03/16/19:Here with his motherIs doing well at this time, his ROS is negativeHe did do the labs on 03/06/19OV 03/14/2020:Here with his motherIs doing wellHe did do the labsWants his meds refilledHis ROS is negative OV 04/17/2021:Here for his yearly aptHe feels 'great'He did do the labsHe is here with his motherHe is also here to do his MWV OV 04/21/2022:Here for his yearly wellness visitHe is here with his mother Fany, he is doing wellHe did labs on 04/10/2022 OV 04/20/2023: Here for his f/u apt and MWV, he is doing very well, he is here with his mother Dylon Lora MD [address] [facility], [address], [place], [address], [employer] 04/20/2023 17:32:34 07/27/2023 text/html 42 yo male comes in for follow up in 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 at last visit in February we requested initiation of tymlos. However tymlos was too costly 800$ per month. Patient now on alendronate weekly and tolerating well- denies any nausea, GI upset or heartburn. Patient has no recent kidney stones or fractures. labs from 07/17:vit D 41.1 ng/mLPTH 32.2 ng/mLcalcium 9.4 mg/dLAlk phos normal 71 U/Lglucose 67 mg/dLCr normal Sushma Rodas MD [address] [facility], [address], [place], [address], [employer] 07/27/2023 11:54:56 04/25/2024 text/html Here to julia mishra care:Past PMD: Dr De La Rosa Hx:AsthmaCerebral PalsyGERDReviewed social family and surgical historyHere with his motherHe and his mother feels that he is doing well at this timeOV 09/22/18:Here for his routine aptHe is here with his mother and states that he is doing well at this timeNo recent labs were done since 03/24/18He would like to get the lipoma removed from the scalp a sit does hurt him OV 03/16/19:Here with his motherIs doing well at this time, his ROS is negativeHe did do the labs on 03/06/19OV 03/14/2020:Here with his motherIs doing wellHe did do the labsWants his meds refilledHis ROS is negative OV 04/17/2021:Here for his yearly aptHe feels 'great'He did do the labsHe is here with his motherHe is also here to do his MWV OV 04/21/2022:Here for his yearly wellness visitHe is here with his mother Fany, he is doing wellHe did labs on 04/10/2022 OV 04/20/2023: Here for his f/u apt and MWV, he is doing very well, he is here with his mother OV 04/25/2024: Here for his routine wellness annual apt, he did not want to do the MWV today, he is doing well, here with his mother Dylon Lora MD [address] [facility], [address], [place], [address], [employer] 04/25/2024 10:53:33 12/26/2024 text/html AsthmaReported bypatient.Quality:well -controlled Severity:no decrease in activities of daily living; improving Context:allergic rhinitis Aggravating Factors:mold; changes in weather; respiratory infection Associated Symptoms:no fever; no fatigue; no cough; no anorexia; no dyspnea; no wheeze; no tachypnea; no retractions; no sleep disturbance Prior Tests and Treatments:short-actin g beta agonist; antihistamine; serum eosinophil count; allergy blood testingNotes:patient hx of CP does communicate-mom is in room with patient and helps with history as well-they both note no issues with breathing, no cough Gail Woodward NP [address] [facility], [address], [place], [address], [employer] 12/26/2024 12:02:05
== END 2025-02-15 10:41 | disposition home or self-care (01) ==
PROVIDERS: PCP Internal Medicine; Visit Provider Internal Medicine
DX: M81.8 Other osteoporosis without current pathological fracture (principal); M85.852 Other specified disorders of bone density and structure, left thigh; M85.851 Other specified disorders of bone density and structure, right thigh
CPT/HCPCS: 77080